=== PATIENT | female | born 1945 | race African-American/Black ===

== ENCOUNTER → 2017-10-20 | Outpatient (CLI) | payer OTHER ==
[~2017-10-20] MED LIST: ASPI-1197 PO; CETI10TA57 PO; FURO-151 PO; GABA-531 PO; GLYB-228 PO; LINA5TAB PO; PANT40TA25 PO; ROSU5TAB PO; SENN-107 PO; VALS160T29 PO; centrum PO; super b complex PO
== END | disposition home or self-care (01) ==
LOC: RAH 10:47
PROVIDERS: ATTEND Internal Medicine
DX: R13.12 Dysphagia, oropharyngeal phase (principal); R63.3 Feeding difficulties
CPT/HCPCS: 74230; 92611; G8996; G8997; G8998

== ENCOUNTER → 2020-01-29 | Outpatient (CLI) | payer OTHER ==
[~2020-01-29] MED LIST changes: -GLYB-228 PO; +GLYB1TAB32 PO; -PANT40TA25 PO; +PANT40TA54 PO
== END | disposition home or self-care (01) ==
LOC: RAH 11:00
PROVIDERS: ATTEND Internal Medicine Gastroenterology
DX: R14.0 Abdominal distension (gaseous) (principal); R11.0 Nausea; R11.10 Vomiting, unspecified
CPT/HCPCS: 78264; A9541

== ENCOUNTER → 2021-04-24 | Outpatient (CLI) | payer OTHER | END | disposition home or self-care (01) | LOC: LAB 14:26 | PROVIDERS: ATTEND Otolaryngology Plastic Surgery within the Head & Neck | DX: H90.3 Sensorineural hearing loss, bilateral (principal) | CPT/HCPCS: 36415; 82565; 84520 ==

== ENCOUNTER → 2021-04-29 | Outpatient (CLI) | payer OTHER ==
[~2021-04-29] MED LIST changes: +GADOTERATE MEGLUMINE 10 MMOL/20 ML VIAL IV ONE
== END | disposition home or self-care (01) ==
LOC: RAH 08:08
PROVIDERS: ATTEND Otolaryngology Plastic Surgery within the Head & Neck
DX: H90.3 Sensorineural hearing loss, bilateral (principal); H70.91 Unspecified mastoiditis, right ear; G31.89 Other specified degenerative diseases of nervous system
CPT/HCPCS: 70553; A9575

== ENCOUNTER 2022-04-20 05:47 | Day surgery (SDC) | payer OTHER ==
[2022-04-19 10:41] LABS: BASOPHILS % (AUTO) 0.7 % (0.0-5.0); EOSINOPHILS % (AUTO) 4.1 % (0.0-8.0); HEMATOCRIT 39.2 % (36-48); LYMPHOCYTES % (AUTO) 45.4 % (21.0-51.0); MEAN CORPUSCULAR HEMOGLOBIN 30.9 pg (27.0-33.0); MEAN CORPUSCULAR HGB CONC 32.7 g/dL (32.0-36.0); MEAN CORPUSCULAR VOLUME 94.7 fL (79-99); NEUTROPHILS % (AUTO) 37.4 % (40.0-77.0); PLATELET COUNT (AUTO) 218 K/uL (130-400); RED BLOOD CELL COUNT(AUTO) 4.14 MIL/uL (4.00-5.50); RED CELL DISTRIBUTION WIDTH 13.2 % (11.0-15.5); WHITE BLOOD COUNT (AUTO) 5.4 K/uL (4.8-10.8)
[2022-04-19 10:48] LABS: CREATININE 1.1 mg/dL (0.5-1.5); POTASSIUM 4.2 mmol/L (3.5-5.1)
[2022-04-19 10:51] LABS: APPEARANCE,URINE CLEAR (CLEAR); BILIRUBIN,URINE NEGATIVE (NEGATIVE); COLOR,URINE LIGHT-YELLOW (YELLOW); GLUCOSE, URINE (UA) NEGATIVE (NEGATIVE); KETONES,URINE NEGATIVE (NEGATIVE); LEUKOCYTE ESTERASE ,URINE 250 Leu/uL (NEGATIVE); NITRATE,URINE NEGATIVE (NEGATIVE); OCCULT BLOOD,URINE NEGATIVE (NEGATIVE); PROTEIN,URINE 10 mg/dL (NEGATIVE); UROBILINOGEN,URINE 0.2 mg/dL (0.2-1.0)
[2022-04-19 10:52] LABS: INR 0.97 (0.85-1.15); PROTHROMBIN TIME 10.6 SEC (9.6-11.6)
[2022-04-19 10:54] LABS: PARTIAL THROMBOPLASTIN TIME 25.5 SEC (26.3-35.5)
[2022-04-19 11:09] LABS: B-TYPE NATRIURETIC PEPTIDE 25 pg/mL (0-100)
[2022-04-19 11:22] LABS: MUCUS,URINE RARE LPF (None Seen); SQUAMOUS EPITHELIAL CELL,UR MOD /HPF (0-2)
[2022-04-19 13:15] VITALS: BP 168/84
[2022-04-20] VITALS (13 sets, daily range): BP systolic 110–205; BP diastolic 46–116
[~2022-04-20] VITALS: Ht 162.6 cm; Wt 83.9 kg
[~2022-04-20 05:47] MED LIST changes: +ALBU6.7H14 IH; -ASPI-1197 PO; -CETI10TA57 PO; +CHOL2000 PO; -FURO-151 PO; -GADOTERATE MEGLUMINE 10 MMOL/20 ML VIAL IV ONE; +GLIP10TA9 PO; +GLIP5TAB11 PO; -GLYB1TAB32 PO; +LOSA100T58 PO; +METF-446 PO; +NITR0.4T SL; +ONDA4TAB10 PO; -PANT40TA54 PO; -SENN-107 PO; -VALS160T29 PO; -centrum PO; -super b complex PO
[2022-04-20] MEDS ORDERED: 0.9%NACL 1000ML 1,000 ML IV ONE (06:27)
[2022-04-20] MEDS ORDERED: IOHEXOL-350 50ML VIAL IV ONE (07:33)
[2022-04-20] MEDS ORDERED: HEPARIN 10,000 UNIT/10ML (1,000 UNIT/ML) VIAL ONE (07:33)
[2022-04-20] MEDS ORDERED: IOHEXOL 350 MG/ML 100ML INFUS..BTL IV ONE (07:33)
[2022-04-20] MEDS ORDERED: LIDOCAINE HCL 400MG/20ML VIAL ONE (07:33)
[2022-04-20] MEDS ORDERED: MIDAZOLAM HCL 1 MG/ML 2ML VIAL ONE (07:33)
[2022-04-20] MEDS ORDERED: NITROGLYCERIN 50MG VIAL ONE (07:34)
[2022-04-20] MEDS ORDERED: LABETALOL 20MG VIAL IV ONE (08:02)
[2022-04-20] MEDS ORDERED: HYDRALAZINE 20MG/ML VIAL ONE (08:07)
[2022-04-20] MEDS ORDERED: CLONIDINE HCL 0.1 MG TABLET ONE (08:30)
[2022-04-20] MEDS ORDERED: GLUCAGON 1MG KIT 1 MG ML IM PRN (08:30)
[2022-04-20] MEDS ORDERED: LABETALOL HCL 200 MG TABLET PO SCH (08:30)
[2022-04-20] MEDS ORDERED: DEXTROSE 50%-WATER 50 ML DISP.SYRIN IV PRN (08:30)
[2022-04-20] MEDS: INSULIN HUMULIN R 100 UNIT/ML 3ML SQ SCH ×2 (11:30→15:35)
[2022-04-20] MEDS ORDERED: ACETAMINOPHEN 325 MG TAB ONE (13:30)
== END 2022-04-20 17:05 | disposition home or self-care (01) ==
LOC: DAH 05:47
PROVIDERS: ATTEND Internal Medicine Cardiovascular Disease
DX: I25.10 Atherosclerotic heart disease of native coronary artery without angina pectoris (principal); E11.22 Type 2 diabetes mellitus with diabetic chronic kidney disease; I12.9 Hypertensive chronic kidney disease with stage 1 through stage 4 chronic kidney disease, or unspecified chronic kidney disease; N18.9 Chronic kidney disease, unspecified; J45.909 Unspecified asthma, uncomplicated; E11.40 Type 2 diabetes mellitus with diabetic neuropathy, unspecified; E78.5 Hyperlipidemia, unspecified; Z79.01 Long term (current) use of anticoagulants; Z79.899 Other long term (current) drug therapy; Z79.84 Long term (current) use of oral hypoglycemic drugs; Z90.710 Acquired absence of both cervix and uterus; Z98.890 Other specified postprocedural states; Z72.89 Other problems related to lifestyle
CPT/HCPCS: 80048; 83880; 85025; 85610; 85730; 87088; 81001; 36415; 71045; 93005; 93458; 82948 ×3; C1894; C1760; Q9965; J3490 ×3; J7030; J0360; J1644 ×2; J2250; Q9967 ×2; A4215; A4222; A4221; A4663; A4216; A4606; A4223 ×3; 99156; 99157

== ENCOUNTER → 2023-09-03 | Outpatient (CLI) | payer OTHER ==
[~2023-09-03] MED LIST changes: -GLIP5TAB11 PO; +GLIP5TAB15 PO; -LOSA100T58 PO; +LOSA100T59 PO
== END | disposition home or self-care (01) ==
LOC: SHCH 13:23
PROVIDERS: ATTEND Internal Medicine Cardiovascular Disease
DX: I25.10 Atherosclerotic heart disease of native coronary artery without angina pectoris (principal); I51.89 Other ill-defined heart diseases
CPT/HCPCS: 93306

== ENCOUNTER → 2024-03-20 | Outpatient (CLI) | payer OTHER ==
[~2024-03-20] MED LIST changes: +GLIP10TA16 PO; -GLIP10TA9 PO; +ONDA-243 PO; -ONDA4TAB10 PO
--- NOTE | 2024-03-20 15:57 | HMCIMG ---
US ARTERIAL BILAT LOW EXT DUPL REASON: TYPE 2 DIABETES COMPARISON: None TECHNIQUE: Bilateral lower extremity arterial Doppler evaluation was performed with spectral analysis and color flow imaging. FINDINGS: Right leg shows biphasic waveforms present throughout with the exception of the dorsalis pedis artery which is monophasic. Flow velocities are preserved. There is no evidence of significant arterial inflow occlusion. Left leg shows biphasic waveforms throughout with the exception of the dorsalis pedis artery. Flow velocities are preserved with exception of dorsalis pedis artery. There is evidence of mild arterial inflow occlusion on the left at the dorsalis pedis level. IMPRESSION: 1. Right leg exam shows no significant arterial inflow occlusion. 2. 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
== END | disposition home or self-care (01) ==
LOC: RAH 13:00
PROVIDERS: ATTEND Internal Medicine
DX: I70.202 Unspecified atherosclerosis of native arteries of extremities, left leg (principal); E11.51 Type 2 diabetes mellitus with diabetic peripheral angiopathy without gangrene
CPT/HCPCS: 93925